=== PATIENT | male | born 1950 | race Caucasian/White ===

== ENCOUNTER 2024-04-07 09:00 | Outpatient (RCR) | payer MEDICARE, BC, SELFPAY | END 2024-08-05 23:59 | disposition home or self-care (01) | PROVIDERS: PCP Family Medicine; Visit Provider Nurse Practitioner Family | DX: N39.3 Stress incontinence (female) (male) (principal); R27.8 Other lack of coordination; Z51.89 Encounter for other specified aftercare | CPT/HCPCS: 97110; 97140; 97162; 97535 ==

== ENCOUNTER 2024-05-30 07:30 | Outpatient (RCR) | payer MEDICARE, BC, SELFPAY | END 2024-06-23 14:22 | disposition home or self-care (01) | PROVIDERS: PCP Family Medicine; Visit Provider Family Medicine | DX: M25.561 Pain in right knee (principal); G89.29 Other chronic pain; Z51.89 Encounter for other specified aftercare | CPT/HCPCS: 97110; 97161 ==

== ENCOUNTER 2024-06-15 09:32 | Outpatient (CLI) | payer MEDICARE, BC, SELFPAY | END 2024-06-15 09:33 | disposition home or self-care (01) | LOC: NFLDUCREF 09:32 | PROVIDERS: PCP Family Medicine; Visit Provider Nurse Practitioner | DX: L25.9 Unspecified contact dermatitis, unspecified cause (principal); R21 Rash and other nonspecific skin eruption | CPT/HCPCS: 87468; 87469; 87484; 87798 ==